=== PATIENT | female | born 1955 | race Caucasian/White ===

== ENCOUNTER 2016-10-24 06:46 | Emergency (ER) | payer BC, OTHER ==
[~2016-10-24] VITALS: Ht 162.6 cm; Wt 79.0 kg
[~2016-10-24 06:46] MED LIST: LEVO.1 PO
[2016-10-24 06:55] VITALS: BP 130/83; PULSE 84; RESP 16; TEMP 97.9; O2SAT 99
[2016-10-24] MEDS ORDERED: LEVO.1 PO (07:00)
--- NOTE | 2016-10-24 07:21 | PD ---
HPI Chief Complaint: Fall Time Seen by Provider: 07:10 Travel History International Travel<30 days: No Contact w/Intl Traveler<30days: No Traveled to known affect area: No History of Present Illness HPI 61yo F with PMH of hypothyroidism presents to the ED with c/o bilateral knee pain s/p mechanical fall at 5pm yesterday. Pt's shoes was stuck on the carpet and she fell on both knees. Pt was able to ambulate afterwards but with pain. Denies any head trauma, chest pain, sob, n/v, abdominal pain, weakness or numbness. Pt states she feels her legs are very tight behind her knees bilaterally. PFSH Past Medical History Arthritis: No Asthma: Yes Blood Disorders: No Anxiety: No Depression: No Heart Rhythm Problems: No Cancer: No Cardiovascular Problems: No High Cholesterol: No Chemotherapy: No Chest Pain: No Congestive Heart Failure: No COPD: No Cerebrovascular Accident: No Diabetes: No Diminished Hearing: No Endocrine: No Gastrointestinal Disorders: No GERD: No Genitourinary: No Headaches: No Hiatal Hernia: No Heparin Induced Thrombocytopen: No Hypertension: No Immune Disorder: No Implanted Vascular Access Dvce: No Kidney Stones: No Musculoskeletal: No Neurologic: No Psychiatric: No Reproductive: No Radiation Therapy: No Renal Failure: No Seizures: No Sleep Apnea: No Thyroid Disease: Yes (HYPO) Ulcer: No Influenza Vaccination: No ?: Not Menopausal: Yes : 2 Para: 2 Past Surgical History Abdominal Surgery: Yes (,PEDRO) AICD: No Arteriovenous Shunt: No Section: Yes (1980) Cholecystectomy: Yes Ear Surgery: No Endocrine Surgery: No Eye Surgery: No Insulin Pump: No Joint Replacement: No Oral Surgery: No Pacemaker: No Other Surgery: Yes (GANGLION CYST R WRIST REMOVED) Social History Alcohol Use: Yes (OCCASIONAL) Tobacco Use: No Substance Use: No Allergies-Medications (Allergen,Severity, Reaction): Coded Allergies: No Known Allergies (Verified , 10/24/16) Reported Meds & Prescriptions Reported Meds & Active Scripts Active Reported Synthroid (Levothyroxine Sodium) 100 Mcg Tab 100 Mcg PO DAILY Review of Systems Except as stated in HPI: all other systems reviewed are Neg Physical Exam Narrative GENERAL: 61yo F not in distress. SKIN: Warm and dry. HEAD: Atraumatic. Normocephalic. EYES: Pupils equal and round. No scleral icterus. No injection or drainage. ENT: No nasal bleeding or discharge. Mucous membranes pink and moist. NECK: Trachea midline. No JVD. CARDIOVASCULAR: Regular rate and rhythm. No murmur appreciated. RESPIRATORY: No accessory muscle use. Clear to auscultation. Breath sounds equal bilaterally. GASTROINTESTINAL: Abdomen soft, non-tender, nondistended. No rebound tenderness or guarding. MUSCULOSKELETAL: Left Knee: Decreased ROM in flexion. Full extension. No joint effusion or edema. No ecchymoses, erythema or point ttp. Sensation intact. DP 2+. Right knee: Decreased ROM in flexion. Full extension. No joint effusion or edema. No ecchymoses, erythema or point ttp. Sensation intact. DP2+. NEUROLOGICAL: Awake and alert. No obvious cranial nerve deficits. Motor grossly within normal limits. Normal speech. PSYCHIATRIC: Appropriate mood and affect; insight and judgment normal. Data Data Last Documented VS Vital Signs Date Time Temp Pulse Resp B/P Pulse Ox O2 Delivery O2 Flow Rate FiO2 10/24/16 07:15 84 16 99 Room Air 10/24/16 06:55 97.9 130/83 Orders Diazepam (Valium) (10/24/16 07:30) Ibuprofen (Motrin) (10/24/16 07:30) Knee, Ltd (1 Or 2vws) (10/24/16 ) Knee, Ltd (1 Or 2vws) (10/24/16 ) [facility] Medical Decision Making Medical Screen Exam Complete: Yes Emergency Medical Condition: Yes Interpretation(s) Last Impressions Knee X-Ray 10/24/16 0000 Signed Impressions: Service Date/Time: Monday, October 24, 2016 07:22 - CONCLUSION: 1. Large joint effusion. 2. No fracture seen. Tobin Ramos MD Knee X-Ray 10/24/16 0000 Signed Impressions: Service Date/Time: Monday, October 24, 2016 07:25 - CONCLUSION: 1. Large joint effusion. 2. No fracture seen. Tobin Ramos MD Differential Diagnosis Contusion vs. fracture vs. musculoskeletal pain vs. sprain Narrative Course 61yo F with bilateral knee pain s/p mechanical fall. Pt is well appearing and likely has musculoskeletal pain. Pt has history of arthroscopic surgery for meniscus in left knee. Will do bilateral xray of knees and give valium and ibuprofen. Xray of bilateral knees show effusion, no fracture. Pt given valium 5mg PO and ibuprofen 600mg PO and feels better. Pt ambulating in the ED without any assistance. Return precautions given. Pt instructed to follow up with PMD. Diagnosis Primary Impression: Knee pain, bilateral Qualified Code: M25.561 - Acute pain of both knees Patient Instructions: General Instructions Departure Forms: Tests/Procedures Additional Instructions: Please follow up with your PMD in 2-3 days. Return to the ED if symptoms worsen. Med/Other Pt SpecificInfo: Prescription(s) given Scripts Ibuprofen 400 Mg [id number] Mg PO Q6H PRN (PAIN SCALE 1 TO 4) #20 TAB Ref 0 Prov:Barb Valera DO 10/24/16 Disposition: 01 DISCHARGE HOME Condition: Stable Barb Valera DO Oct 24, 2016 07:21
[2016-10-24] MEDS ORDERED: IBUPROFEN 600 MG TAB PO ONE (07:30)
[2016-10-24] MEDS ORDERED: DIAZEPAM 5 MG TAB PO ONE (07:30)
--- NOTE | 2016-10-24 07:45 | RADHPO ---
EXAM DATE/TIME: 10/24/2016 07:22 [facility] COMPARISON: No previous studies available for comparison. INDICATIONS : Fall, left knee pain. MEDICAL HISTORY : None. SURGICAL HISTORY : None. ENCOUNTER: Initial ACUITY: 2 days PAIN SCORE: 7/10 LOCATION: Left knee FINDINGS: Two view examination of the left knee demonstrates no evidence of fracture or dislocation. Large join t effusion. Bony mineralization is normal. Minimal osteoarthritis. The suprapatellar soft tissues jauregui ve a normal configuration. CONCLUSION: 1. Large joint effusion. 2. No fracture seen. Tobin Ramos MD on October 24, 2016 at 7:42 Board Certified Radiologist. This report was verified electronically.
--- NOTE | 2016-10-24 07:46 | RADHPO ---
EXAM DATE/TIME: 10/24/2016 07:25 [facility] COMPARISON: No previous studies available for comparison. INDICATIONS : Fall, right knee pain. MEDICAL HISTORY : None. SURGICAL HISTORY : None. ENCOUNTER: Initial ACUITY: 2 days PAIN SCORE: 7/10 LOCATION: Right knee INDINGS: Two view examination of the right knee demonstrates no evidence of fracture or dislocation. Large jatin nt effusion. Bony mineralization is normal. Minimal osteoarthritis. The suprapatellar soft tissues h ave a normal configuration. CONCLUSION: 1. Large joint effusion. 2. No fracture seen. Tobin Ramos MD on October 24, 2016 at 7:44 Board Certified Radiologist. This report was verified electronically.
[2016-10-24] MEDS ORDERED: IBUP400T20 PO (08:24)
== END 2016-10-24 08:43 | disposition home or self-care (01) ==
LOC: PHED 06:46
DX: M25.561 Pain in right knee (principal); E03.9 Hypothyroidism, unspecified; M25.562 Pain in left knee; W01.0XXA Fall on same level from slipping, tripping and stumbling without subsequent striking against object, initial encounter; Y93.9 Activity, unspecified; Y92.9 Unspecified place or not applicable
CPT/HCPCS: 73560; 99284

== ENCOUNTER 2017-03-13 08:32 | Emergency (ER) | payer BC ==
[~2017-03-13] VITALS: Ht 162.6 cm; Wt 80.0 kg
[~2017-03-13 08:32] MED LIST changes: +IBUP400T20 PO
[2017-03-13 08:37] VITALS: BP 117/77; PULSE 95; RESP 16; TEMP 98.7; O2SAT 95
[2017-03-13] MEDS ORDERED: ONDANSETRON HCL 4 MG/2 ML VIAL IV PUSH ONE (09:00)
[2017-03-13] MEDS ORDERED: KETOROLAC TROMETHAMINE 30 MG/ML (IVP) VIAL IV PUSH ONE (09:00)
--- NOTE | 2017-03-13 09:01 | PD ---
HPI Chief Complaint: Flank/Kidney Pain Time Seen by Provider: 08:44 Travel History International Travel<30 days: No Contact w/Intl Traveler<30days: No Traveled to known affect area: No History of Present Illness HPI 61yo F with PMH of thyroid disease presents to the ED with c/o intermittent fever, suprapubic discomfort for 3 days. States she had bilateral back pain that started today. Also with mild frontal headache that feels like her usual headache today. Temperature of 102F yesterday and took medication last night. Denies any vomiting, chest pain, sob, dysuria, hematuria, vaginal bleeding or discharge, focal weakness or numbness or visual changes or neck pain. PFSH Past Medical History Arthritis: No Asthma: Yes Blood Disorders: No Anxiety: No Depression: No Heart Rhythm Problems: No Cancer: No Cardiovascular Problems: No High Cholesterol: No Chemotherapy: No Chest Pain: No Congestive Heart Failure: No COPD: No Cerebrovascular Accident: No Diabetes: No Diminished Hearing: No Endocrine: No Gastrointestinal Disorders: No GERD: No Genitourinary: No Headaches: No Hiatal Hernia: No Heparin Induced Thrombocytopen: No Hypertension: No Immune Disorder: No Implanted Vascular Access Dvce: No Kidney Stones: No Musculoskeletal: No Neurologic: No Psychiatric: No Reproductive: No Radiation Therapy: No Renal Failure: No Seizures: No Sleep Apnea: No Thyroid Disease: Yes (HYPO) Ulcer: No Tetanus Vaccination: < 5 Years Influenza Vaccination: No ?: Not Menopausal: Yes : 2 Para: 2 Past Surgical History Abdominal Surgery: Yes (,PEDRO) AICD: No Arteriovenous Shunt: No Section: Yes (1980) Cholecystectomy: Yes Ear Surgery: No Endocrine Surgery: No Eye Surgery: No Insulin Pump: No Joint Replacement: No Oral Surgery: No Pacemaker: No Other Surgery: Yes (GANGLION CYST R WRIST REMOVED) Social History Alcohol Use: Yes (OCCASIONAL) Tobacco Use: No Substance Use: No Allergies-Medications (Allergen,Severity, Reaction): Coded Allergies: No Known Allergies (Verified , 03/13/17) Reported Meds & Prescriptions Reported Meds & Active Scripts Active Ibuprofen 400 Mg Tab 400 Mg PO Q6H PRN Reported Synthroid (Levothyroxine Sodium) 100 Mcg Tab 100 Mcg PO DAILY Review of Systems Except as stated in HPI: all other systems reviewed are Neg Physical Exam Narrative GENERAL: 61yo F in mild distress. SKIN: Focused skin assessment warm/dry. HEAD: Atraumatic. Normocephalic. EYES: Pupils equal and round at 3mm bilaterally. EOMI. No scleral icterus. No injection or drainage. ENT: No nasal bleeding or discharge. Mucous membranes pink and moist. NECK: No nuchal rigidity. CARDIOVASCULAR: Regular rate and rhythm. No murmur appreciated. RESPIRATORY: No accessory muscle use. Clear to auscultation. Breath sounds equal bilaterally. GASTROINTESTINAL: Abdomen soft, Mild suprapubic ttp. No rebound tenderness or guarding. BACK: No CVA tenderness bilaterally. MUSCULOSKELETAL: No obvious deformities. No clubbing. No cyanosis. No edema. NEUROLOGICAL: Awake and alert. No obvious cranial nerve deficits. Motor grossly within normal limits. Normal speech. PSYCHIATRIC: Appropriate mood and affect; insight and judgment normal. Data Data Last Documented VS Vital Signs Date Time Temp Pulse Resp B/P Pulse Ox O2 Delivery O2 Flow Rate FiO2 03/13/17 08:37 98.7 95 16 117/77 95 Orders Urinalysis - C+S If Indicated (03/13/17 08:45) Complete Blood Count With Diff (03/13/17 08:56) Basic Metabolic Panel (Bmp) (03/13/17 08:56) Ondansetron Inj (Zofran Inj) (03/13/17 09:00) Ketorolac Inj (Toradol Inj) (03/13/17 09:00) Ct Abd/Pel W Iv Contrast(Rout) (03/13/17 ) Iohexol 350 Inj (Omnipaque 350 Inj) (03/13/17 10:15) Labs Laboratory Tests Test 03/13/17 03/13/17 08:55 09:05 Urine Collection Type CLEAN CATCH Urine Color YELLOW Urine Turbidity CLEAR Urine pH 7.0 Urine Specific [place] 1.021 Urine Protein NEG mg/dL Urine Glucose (UA) NEG mg/dL Urine Ketones NEG mg/dL Urine Occult Blood NEG Urine Nitrite NEG Urine Bilirubin NEG Urine Leukocyte Esterase NEG Urine WBC 0-2 /hpf Urine Squamous Epithelial 0-5 /hpf Cells Urine Mucus FEW /lpf Microscopic Urinalysis Comment CULT NOT INDICATED White Blood Count 9.1 TH/MM3 Red Blood Count 4.51 MIL/MM3 Hemoglobin 13.3 GM/DL Hematocrit 40.4 % Mean Corpuscular Volume 89.6 FL Mean Corpuscular Hemoglobin 29.5 PG Mean Corpuscular Hemoglobin 33.0 % Concent Red Cell Distribution Width 13.2 % Platelet Count 195 TH/MM3 Mean Platelet Volume 8.5 FL Neutrophils (%) (Auto) 88.1 % Lymphocytes (%) (Auto) 6.1 % Monocytes (%) (Auto) 5.2 % Eosinophils (%) (Auto) 0.2 % Basophils (%) (Auto) 0.4 % Neutrophils # (Auto) 8.0 TH/MM3 Lymphocytes # (Auto) 0.6 TH/MM3 Monocytes # (Auto) 0.5 TH/MM3 Eosinophils # (Auto) 0.0 TH/MM3 Basophils # (Auto) 0.0 TH/MM3 CBC Comment DIFF FINAL Differential Comment Sodium Level 143 MEQ/L Potassium Level 3.7 MEQ/L Chloride Level 108 MEQ/L Carbon Dioxide Level 27.2 MEQ/L Anion Gap 8 MEQ/L Blood Urea Nitrogen 6 MG/DL Creatinine 0.57 MG/DL Estimat Glomerular Filtration 108 ML/MIN Rate Random Glucose 109 MG/DL Calcium Level 8.9 MG/DL MDM Medical Decision Making Medical Screen Exam Complete: Yes Emergency Medical Condition: Yes Interpretation(s) Laboratory Tests Test 03/13/17 03/13/17 08:55 09:05 Urine Collection Type CLEAN CATCH Urine Color YELLOW (YELLW/STRAW) Urine Turbidity CLEAR (CLEAR) Urine pH 7.0 (5.0-8.5) Urine Specific [place] 1.021 (1.002-1.035) Urine Protein NEG mg/dL (NEG-TRACE) Urine Glucose (UA) NEG mg/dL (NEG) Urine Ketones NEG mg/dL (NEG) Urine Occult Blood NEG (NEG) Urine Nitrite NEG (NEG) Urine Bilirubin NEG (NEG) Urine Leukocyte Esterase NEG (NEG) Urine WBC 0-2 /hpf (0-5) Urine Squamous Epithelial 0-5 /hpf (0-5) Cells Urine Mucus FEW /lpf (OCC) Microscopic Urinalysis Comment CULT NOT INDICATED White Blood Count 9.1 TH/MM3 (4.0-11.0) Red Blood Count 4.51 MIL/MM3 (4.00-5.30) Hemoglobin 13.3 GM/DL (11.6-15.3) Hematocrit 40.4 % (35.0-46.0) Mean Corpuscular Volume 89.6 FL (80.0-100.0) Mean Corpuscular Hemoglobin 29.5 PG (27.0-34.0) Mean Corpuscular Hemoglobin 33.0 % Concent (32.0-36.0) Red Cell Distribution Width 13.2 % (11.6-17.2) Platelet Count 195 TH/MM3 (150-450) Mean Platelet Volume 8.5 FL (7.0-11.0) Neutrophils (%) (Auto) 88.1 % (16.0-70.0) Lymphocytes (%) (Auto) 6.1 % (9.0-44.0) Monocytes (%) (Auto) 5.2 % (0.0-8.0) Eosinophils (%) (Auto) 0.2 % (0.0-4.0) Basophils (%) (Auto) 0.4 % (0.0-2.0) Neutrophils # (Auto) 8.0 TH/MM3 (1.8-7.7) Lymphocytes # (Auto) 0.6 TH/MM3 (1.0-4.8) Monocytes # (Auto) 0.5 TH/MM3 (0-0.9) Eosinophils # (Auto) 0.0 TH/MM3 (0-0.4) Basophils # (Auto) 0.0 TH/MM3 (0-0.2) CBC Comment DIFF FINAL Differential Comment Sodium Level 143 MEQ/L (136-145) Potassium Level 3.7 MEQ/L (3.5-5.1) Chloride Level 108 MEQ/L (98-107) Carbon Dioxide Level 27.2 MEQ/L (21.0-32.0) Anion Gap 8 MEQ/L (5-15) Blood Urea Nitrogen 6 MG/DL (7-18) Creatinine 0.57 MG/DL (0.50-1.00) Estimat Glomerular Filtration 108 ML/MIN Rate (>89) Random Glucose 109 MG/DL (74-106) Calcium Level 8.9 MG/DL (8.5-10.1) Last Impressions Abdomen/Pelvis CT 03/13/17 0000 Signed Impressions: Service Date/Time: Monday, March 13, 2017 10:04 - CONCLUSION: 1. Focal wall thickening and pericolic inflammatory changes in the region of the mid sigmoid colon consistent with acute diverticulitis without pericolic abscess. 2. Small periumbilical hernia with fat. 3. Bibasilar fibrotic scarring. 4. Mild degenerative changes and scoliosis of the thoracolumbar spine. Arvin Clements MD Differential Diagnosis Pyelonephritis vs. cystitis vs. nephrolithiasis vs. colitis Narrative Course 61yo F with suprapubic ttp and fever. Pt given toradol and zofran and states her headache has resolved and her abdominal pain has improved. No longer nauseous. Labs reviewed, no leukocytosis. UA negative nitrite, leukocyte or blood. Pt reevaluated at bedside and blister packing machine tender in lower mid abdomen. Will obtain CTa/p since UA is negative. Pt states she had a colonoscopy a few weeks ago and it was normal. CTa/p showed focal wall thickening and pericolic inflammatory changes in the region of the mid sigmoid colon consistent with acute diverticulitis without pericolic abscess. Pt is well appearing and tolerating PO. Will try outpatient treatment first. Return precautions given. Diagnosis Primary Impression: Acute diverticulitis Patient Instructions: General Instructions Departure Forms: Tests/Procedures Additional Instructions: Please follow up with your PMD in 3-7 days. Return to the ED if symptoms worsen. Med/Other Pt SpecificInfo: Prescription(s) given Scripts Ciprofloxacin 500 Mg [id number] Mg PO BID 10 Days Ref 0 Prov:Barb Valera DO 03/13/17 Metronidazole (Flagyl)500 Mg [id number] Mg PO TID 10 Days Ref 0 Prov:Barb Valera DO 03/13/17 Disposition: 01 DISCHARGE HOME Condition: Stable Barb Valera DO Mar 13, 2017 09:01
[2017-03-13 09:02] LABS: BLOOD, URINE NEG (NEG); GLUCOSE,URINE NEG (NEG); KETONE, URINE NEG (NEG); NITRITE,URINE NEG (NEG)
[2017-03-13 09:14] LABS: METHOD OF COLLECTION CLEAN CATCH; URINE COLOR YELLOW (YELLW/STRAW)
[2017-03-13 09:15] LABS: COMMENT (UR) CULT NOT INDICATED; CULTURE IF INDICATED CULT NOT INDICATED; MUCUS URINE FEW /lpf (OCC); SQUAMOUS EPITHELIAL CELL URINE 0-5 /hpf (0-5); WBC, URINE 0-2 /hpf (0-5)
[2017-03-13 09:22] LABS: BASOPHIL % 0.4 % (0.0-2.0); EOSINOPHIL % 0.2 % (0.0-4.0); HEMATOCRIT 40.4 % (35.0-46.0); HEMO FLAGS DIFF FINAL; LYMPH % 6.1 % (9.0-44.0); LYMPHOCYTE # 0.6 TH/MM3 (1.0-4.8); MEAN CELL VOLUME 89.6 FL (80.0-100.0); MEAN CORPUSCULAR HEMOGLOBIN 29.5 PG (27.0-34.0); MONO % 5.2 % (0.0-8.0); NEUT % 88.1 % (16.0-70.0); PLATELET COUNT 195 TH/MM3 (150-450); RED BLOOD COUNT 4.51 MIL/MM3 (4.00-5.30); RED CELL DISTRIBUTION WIDTH 13.2 % (11.6-17.2); WHITE BLOOD COUNT 9.1 TH/MM3 (4.0-11.0)
[2017-03-13 10:02] LABS: BICARBONATE 27.2 MEQ/L (21.0-32.0)
[2017-03-13 10:03] LABS: POTASSIUM 3.7 MEQ/L (3.5-5.1)
[2017-03-13] MEDS ORDERED: IOHEXOL 350 MG/ML 10 ML VIAL (for RAD DIAG) IV ONE (10:15)
--- NOTE | 2017-03-13 10:40 | RADHPO ---
EXAM DATE/TIME: 03/13/2017 10:04 [facility] COMPARISON: No previous studies available for comparison. INDICATIONS : Lower abdominal pain with fever for three days. IV CONTRAST: 90 cc Omnipaque 350 (iohexol) IV ORAL CONTRAST: No oral contrast ingested. RADIATION DOSE: 16.59 CTDIvol (mGy) MEDICAL HISTORY : None SURGICAL HISTORY : Cholecystectomy. section. ENCOUNTER: Initial ACUITY: 3 days PAIN SCALE: 5/10 LOCATION: Bilateral lower quadrant TECHNIQUE: Volumetric scanning of the abdomen and pelvis was performed. Using automated exposure control and ad justment of the mA and/or kV according to patient size, radiation dose was kept as low as reasonably achievable to obtain optimal diagnostic quality images. FINDINGS: LOWER LUNGS: Scattered bibasilar fibrotic scarring is noted. LIVER: Homogeneous density without lesion. There is no dilation of the biliary tree. No calcified gallston es. Status post cholecystectomy. SPLEEN: Normal size without lesion. PANCREAS: Within normal limits. KIDNEYS: Normal in size and shape. There is no mass, stone or hydronephrosis. ADRENAL GLANDS: Within normal limits. VASCULAR: There is no aortic aneurysm. BOWEL/MESENTERY: There is evidence of focal wall thickening and pericolic inflammatory changes in the region of the mi d sigmoid colon consistent with acute diverticulitis without pericolic abscess.ABDOMINAL WALL: Small periumbilical hernia with fat is noted. RETROPERITONEUM: There is no lymphadenopathy. BLADDER: No wall thickening or mass. REPRODUCTIVE: Within normal limits. INGUINAL: There is no lymphadenopathy or hernia. MUSCULOSKELETAL: Mild degenerative changes and scoliosis of the thoracolumbar spine are noted. CONCLUSION: 1. Focal wall thickening and pericolic inflammatory changes in the region of the mid sigmoid colon co nsistent with acute diverticulitis without pericolic abscess. 2. Small periumbilical hernia with fat. 3. Bibasilar fibrotic scarring. 4. Mild degenerative changes and scoliosis of the thoracolumbar spine. Arvin Clements MD on March 13, 2017 at 10:30 Board Certified Radiologist. This report was verified electronically.
[2017-03-13] MEDS ORDERED: METR-1 PO (10:55)
[2017-03-13] MEDS ORDERED: CIPR500T2 PO (10:55)
[2017-03-13 10:57] VITALS: BP 114/79; PULSE 78; RESP 18; O2SAT 99
== END 2017-03-13 11:17 | disposition home or self-care (01) ==
LOC: PHED 08:32
DX: R10.9 Unspecified abdominal pain (principal); K57.92 Diverticulitis of intestine, part unspecified, without perforation or abscess without bleeding; M54.9 Dorsalgia, unspecified; R51 Headache; J45.909 Unspecified asthma, uncomplicated; E03.9 Hypothyroidism, unspecified
CPT/HCPCS: 74177; 80048; 81001; 85025; 96374; 96375; 99285; J1885; J2405; Q9967